=== PATIENT | male | born 1965 | race Caucasian/White ===

== ENCOUNTER 2016-08-18 10:12 | Emergency (ER) | payer MEDICARE, OTHER ==
[~2016-08-18] VITALS: Ht 185.4 cm; Wt 124.7 kg
[~2016-08-18 10:12] MED LIST: DIVA250T4 PO
[2016-08-18 10:18] VITALS: BP 179/109
== END 2016-08-18 11:04 | disposition home or self-care (01) ==
LOC: ER 10:14
DX: S30.812A Abrasion of penis, initial encounter (principal); G47.30 Sleep apnea, unspecified; F31.9 Bipolar disorder, unspecified; F32.9 Major depressive disorder, single episode, unspecified; F17.200 Nicotine dependence, unspecified, uncomplicated; X58.XXXA Exposure to other specified factors, initial encounter; Y93.9 Activity, unspecified; Y92.9 Unspecified place or not applicable; Y99.9 Unspecified external cause status
CPT/HCPCS: 99283; A4606; Z7610

== ENCOUNTER 2016-09-19 04:21 | Emergency (ER) | payer MEDICARE, OTHER ==
[~2016-09-19] VITALS: Ht 182.9 cm; Wt 131.5 kg
[2016-09-19 04:45] VITALS: BP 137/81
== END 2016-09-19 05:15 | disposition home or self-care (01) ==
LOC: ER 04:23
DX: L02.91 Cutaneous abscess, unspecified (principal); F32.9 Major depressive disorder, single episode, unspecified; G47.30 Sleep apnea, unspecified; I10 Essential (primary) hypertension; F17.210 Nicotine dependence, cigarettes, uncomplicated
CPT/HCPCS: 99283; A4606; Z7610

== ENCOUNTER 2016-09-22 03:40 | Emergency (ER) | payer MEDICARE, OTHER ==
[~2016-09-22] VITALS: Ht 185.4 cm; Wt 127.0 kg
--- NOTE | 2016-09-22 04:03 | NUR ---
PT AMBULATORY TO ER BED 8, PT STATES "HE WAS HERE ON FRIDAY FOR AN ABSCESS ON HIS LEFT LEG AND WAS TOLD TO COME BACK IN 3 DAYS FOR IT TO BE DRAINED." PT AOX 3 RR EVEN AND UNLABORED. NO SOB NOTED. NAD NOTED. NO NVD NOTED. PT NOT DIAPHORETIC. PT WAITING FOR MD ADAN.
--- NOTE | 2016-09-22 04:36 | NUR ---
AT BEDSIDE FOR I&D
--- NOTE | 2016-09-22 05:00 | NUR ---
Patient does not wish to proceed with medical care recommended by Dr. SPEARS . Patient given information related to possible complications, up to and including , which could occur as a result of leaving the hospital at this time. Patient verbalizes understanding of risks involved due to leaving against medical advice. Patient has signed AMA form. Patient discharged to home in stable condition. Written and verbal after care instructions given. Patient verbalizes understanding of instruction. ambulatory with a steady gait
[2016-09-22 05:01] VITALS: BP 130/79
== END 2016-09-22 05:02 | disposition left against medical advice (07) ==
LOC: ER 03:46
DX: L02.416 Cutaneous abscess of left lower limb (principal); L03.116 Cellulitis of left lower limb; F31.9 Bipolar disorder, unspecified; F32.9 Major depressive disorder, single episode, unspecified; F17.200 Nicotine dependence, unspecified, uncomplicated
CPT/HCPCS: A4606; A6402; A6407; Z7610

== ENCOUNTER 2016-09-25 03:54 | Emergency (ER) | payer MEDICARE, OTHER ==
--- NOTE | 2016-09-25 04:33 | NUR ---
CALLED PT X 3 IN WAITING ROOM. NO RESPONSE. PER ADMITTING STAFF PT LEFT.
== END 2016-09-25 04:35 | disposition left against medical advice (07) ==
LOC: ER 03:54
DX: Z53.21 Procedure and treatment not carried out due to patient leaving prior to being seen by health care provider (principal)

== ENCOUNTER 2016-09-25 05:19 | Emergency (ER) | payer MEDICARE, OTHER ==
--- NOTE | 2016-09-25 05:35 | NUR ---
CALLED FOR TRIAGE; NO ANSWER
--- NOTE | 2016-09-25 05:50 | NUR ---
CALLED AGAIN X2 FOR TRIAGE; INFORMED PT LEFT.
== END 2016-09-25 05:52 | disposition left against medical advice (07) ==
LOC: ER 05:19
DX: Z53.21 Procedure and treatment not carried out due to patient leaving prior to being seen by health care provider (principal)

== ENCOUNTER 2016-11-12 08:49 | Outpatient (CLI) | payer MEDICARE, OTHER | END 2016-11-12 23:59 | disposition home or self-care (01) | LOC: CT 08:49 | DX: Z87.891 Personal history of nicotine dependence (principal); Z80.1 Family history of malignant neoplasm of trachea, bronchus and lung | CPT/HCPCS: 71250-TC ==

== ENCOUNTER 2017-03-02 08:29 | Emergency (ER) | payer MEDICARE, OTHER ==
[~2017-03-02] VITALS: Ht 185.4 cm; Wt 127.0 kg
[2017-03-02] MEDS ORDERED: FLUCONAZOLE (100 MG) 100 MG TABLET ONE (08:57)
[2017-03-02] MEDS ORDERED: FLUCONAZOLE (100 MG) 100 MG TABLET PO ONE (09:00)
[2017-03-02 09:02] VITALS: BP 115/66
== END 2017-03-02 09:04 | disposition home or self-care (01) ==
LOC: ER 08:36
DX: B37.9 Candidiasis, unspecified (principal); F32.9 Major depressive disorder, single episode, unspecified; G47.30 Sleep apnea, unspecified; F17.200 Nicotine dependence, unspecified, uncomplicated; F31.9 Bipolar disorder, unspecified
CPT/HCPCS: 82962; 99283; A4606; Z7610

== ENCOUNTER 2017-06-30 10:19 | Emergency (ER) | payer MEDICARE, OTHER ==
[~2017-06-30] VITALS: Ht 185.4 cm; Wt 121.1 kg
[2017-06-30 10:50] VITALS: BP 145/82
== END 2017-06-30 10:51 | disposition home or self-care (01) ==
LOC: ER 10:20
DX: R42 Dizziness and giddiness (principal); G47.30 Sleep apnea, unspecified; F32.9 Major depressive disorder, single episode, unspecified; F17.200 Nicotine dependence, unspecified, uncomplicated
CPT/HCPCS: A4606; Z7610

== ENCOUNTER 2017-07-03 05:22 | Emergency (ER) | payer MEDICARE, OTHER ==
[~2017-07-03] VITALS: Ht 185.4 cm; Wt 121.1 kg
--- NOTE | 2017-07-03 05:56 | NUR ---
PT BIB SELF C/O DIZZINESS/ SINUS HEADACHE X1 WEEK. NO SOB NOTED AT THIS TIME. A/OX4 VSS NAD. WILL CONTINUE TO MONITOR FOR ANY CHANGES
--- NOTE | 2017-07-03 06:15 | NUR ---
ER AT BEDSIDE FOR EVAL
--- NOTE | 2017-07-03 06:18 | NUR ---
CALLED LAB FOR BLOOD DRAW
[2017-07-03 06:38] LABS: BASOPHILS % (AUTO) 0.7 % (0.0-2.0); EOSINOPHILS # (AUTO) 0.4 /CMM (0.0-0.7); EOSINOPHILS % (AUTO) 5.8 % (0.0-6.0); HEMATOCRIT 43 % (39-51); HEMOGLOBIN 14.4 g/dL (13.5-17.5); LYMPHOCYTES # (AUTO) 1.5 /CMM (0.8-4.8); LYMPHOCYTES % (AUTO) 22.8 % (20.0-44.0); MEAN CORPUSCULAR HEMOGLOBIN 30 PG (26.0-33.0); MEAN CORPUSCULAR HGB CONC 34 g/dl (31.0-36.0); MEAN CORPUSCULAR VOLUME 87 fL (80-96); MONOCYTES # (AUTO) 0.7 /CMM (0.1-1.30); MONOCYTES % (AUTO) 10.2 % (2.0-12.0); NEUTROPHILS # (AUTO) 3.9 /CMM (1.8-8.9); NEUTROPHILS % (AUTO) 60.5 % (43.0-81.0); PLATELET COUNT (AUTO) 205 /CMM (150-450); RDW COEFFICIENT OF VARIATION 14.4 (11.5-15.0); RED BLOOD CELL COUNT(AUTO) 4.88 MIL/uL (4.5-6.0); WHITE BLOOD COUNT (AUTO) 6.4 K/uL (4.3-11.0)
--- NOTE | 2017-07-03 06:45 | NUR ---
LAB AT BEDSIDE FOR BLOOW DRAW
[2017-07-03 06:52] LABS: CALCIUM, SERUM 8.7 mg/dL (8.5-10.1); CREATININE 0.9 mg/dL (0.6-1.3); POTASSIUM 4.1 mmol/L (3.5-5.1)
[2017-07-03 07:01] LABS: APPEARANCE,URINE SL CLOUDY (CLEAR); BILIRUBIN,URINE NEGATIVE (NEGATIVE); BLOOD, URINE NEGATIVE Ery/uL (NEGATIVE); COLOR,URINE YELLOW (YELLOW); KETONES,URINE NEGATIVE (NEGATIVE); LEUKOCYTE ESTERASE ,URINE NEGATIVE (NEGATIVE); NITRITE, URINE NEGATIVE (NEGATIVE); PH,URINE 5.5 (5.0-8.0); PROTEIN,URINE NEGATIVE (NEGATIVE); UGLUCOSE NEGATIVE (NEGATIVE); UROBILINOGEN,URINE 0.2 EU/dL (0.2)
--- NOTE | 2017-07-03 07:20 | NUR ---
REPORT GIVEN TO NESSA
--- NOTE | 2017-07-03 07:29 | NUR ---
D/C PAPERWORK AND LAB RESULTS GIVEN TO PT.
[2017-07-03 07:30] VITALS: BP 119/71
== END 2017-07-03 07:30 | disposition home or self-care (01) ==
LOC: ER 05:25
DX: R51 Headache (principal); F31.9 Bipolar disorder, unspecified; F17.200 Nicotine dependence, unspecified, uncomplicated
CPT/HCPCS: 36415; 80048; 81001; 85025; 99284; A4606; 81000-TC; Z7610

== ENCOUNTER 2018-10-09 21:49 | Inpatient (IN) | payer MEDICARE, OTHER ==
[~2018-10-09] VITALS: Ht 185.4 cm; Wt 132.0 kg
--- NOTE | 2018-10-09 21:53 | NUR ---
PT BIBSELF FOR "STOMACH CRAMPS" PT STATES HE THINKS IT COULD BE FOOD . PT AAOX4, PT ON MONITOR, VSS, NAD NOTED. PENDING MD ADAN
[2018-10-09] MEDS ORDERED: DICYCLOMINE HCL INJ 20 MG/2 ML AMPUL IM ONE ×2 (22:24→22:30)
[2018-10-09 22:31] LABS: APPEARANCE,URINE CLEAR (CLEAR); BILIRUBIN,URINE NEGATIVE (NEGATIVE); BLOOD, URINE NEGATIVE Ery/uL (NEGATIVE); COLOR,URINE YELLOW (YELLOW); KETONES,URINE TRACE (NEGATIVE); LEUKOCYTE ESTERASE ,URINE NEGATIVE (NEGATIVE); NITRITE, URINE NEGATIVE (NEGATIVE); PROTEIN,URINE NEGATIVE (NEGATIVE); UGLUCOSE NEGATIVE (NEGATIVE); UROBILINOGEN,URINE 0.2 EU/dL (0.2)
[2018-10-09 22:32] LABS: BASOPHILS # (AUTO) 0.1 /CMM (0.0-0.2); BASOPHILS % (AUTO) 0.3 % (0.0-2.0); EOSINOPHILS % (AUTO) 0.3 % (0.0-6.0); HEMATOCRIT 45 % (39-51); HEMOGLOBIN 15.2 g/dL (13.5-17.5); LYMPHOCYTES # (AUTO) 1.2 /CMM (0.8-4.8); LYMPHOCYTES % (AUTO) 7.1 % (20.0-44.0); MEAN CORPUSCULAR HGB CONC 34 g/dl (31.0-36.0); MEAN CORPUSCULAR VOLUME 87 fL (80-96); MONOCYTES # (AUTO) 1.1 /CMM (0.1-1.30); NEUTROPHILS # (AUTO) 13.9 /CMM (1.8-8.9); NEUTROPHILS % (AUTO) 85.3 % (43.0-81.0); PLATELET COUNT (AUTO) 224 /CMM (150-450); RED BLOOD CELL COUNT(AUTO) 5.15 MIL/uL (4.5-6.0); WHITE BLOOD COUNT (AUTO) 16.3 K/uL (4.3-11.0)
[2018-10-09 22:48] LABS: CALCIUM, SERUM 8.8 mg/dL (8.5-10.1); CARBON DIOXIDE 27 mmol/L (21-32); CHLORIDE 104 mmol/L (98-107); CREATININE 0.8 mg/dL (0.6-1.3); GLUCOSE 143 mg/dL (74-106); POTASSIUM 3.9 mmol/L (3.5-5.1); SODIUM SERUM 140 mmol/L (136-145); UREA NITROGEN, BLOOD 18 mg/dL (7-18)
[2018-10-09 22:53] LABS: ALANINE AMINOTRANSFERASE 29 U/L (12-78); ALBUMIN 3.8 g/dL (3.4-5.0); ALKALINE PHOSPHATASE 79 U/L (46-116); ASPARTATE AMINOTRANSFERASE 20 U/L (15-37); BILIRUBIN,DIRECT 0.1 mg/dL (0.0-0.2); BILIRUBIN,TOTAL 0.5 mg/dL (0.2-1.0); LIPASE 166 U/L (73-393); TOTAL PROTEIN, SERUM 7.4 g/dL (6.4-8.2)
--- NOTE | 2018-10-09 23:00 | NUR ---
RECEIVED REPORT FROM CHRISTAL BENSON FOR ERNESTO
--- NOTE | 2018-10-09 23:03 | NUR ---
PT RETURNED FROM CT
[2018-10-09] MEDS ORDERED: MORPHINE SULFATE INJ 2 MG/ML DISP.SYRIN ONE (23:46)
[2018-10-10] MEDS ORDERED: MORPHINE SULFATE INJ 2 MG/ML DISP.SYRIN IM ONE
[2018-10-10] MEDS ORDERED: PIPERACILLIN /TAZOBACTAM 3.375 G VIAL IV ONE ×2 (00:14→05:32)
--- NOTE | 2018-10-10 00:30 | NUR ---
GAVE REPORT TO NGA BENSON FOR ERNESTO
[2018-10-10 01:10] LABS: BACTERIA,URINE Few /HPF (None Seen); MUCUS,URINE Moderate /LPF (None Seen); RBC,URINE 0-2 /HPF (0-2); SQUAMOUS EPITHELIAL CELL,UR Rare /HPF (None Seen); WBC,URINE 0-2 /HPF (0-3)
--- NOTE | 2018-10-10 01:30 | NUR ---
MS/RN NOTES RECEIVED PT. FROM ER VIA WHEELCHAIR. PT. IS AWAKE, ALERT AND ORIENTED X3. BREATHING EVEN AND UNLABORED ON ROOM AIR. NO SOB, RESPIRATORY DISTRESS NOTED AT THIS TIME. PT. COMPLAINING OF ABDOMINAL PAIN 01/13 WILL ADMINISTER TO PT. PAIN MEDICATION ORDERED. ORIENTED PT. TO ROOM. PT. WITH RIGHT AC 18 GAUGE IV SALINE LOCK PRESENT, PATENT AND INTACT. BED LOCKED AND IN LOWEST POSITION, SIDE RAILS UP X2, CALL LIGHT WITHIN REACH, WILL CONTINUE TO MONITOR.
--- NOTE | 2018-10-10 01:44 | NUR ---
TRANSFERRED TO MS BED VIA WHEEL CHAIR
[2018-10-10] MEDS ORDERED: IV D5/0.45 NACL 1,000 ML IV PRN (02:00)
[2018-10-10] MEDS ORDERED: ACETAMINOPHEN 650 MG/SUPP.RECT RC PRN (02:00)
[2018-10-10 02:10] VITALS: BP 101/61
[2018-10-10] MEDS: MORPHINE SULFATE INJ 2 MG/ML DISP.SYRIN IV PRN ×3 (05:21→11:53)
[2018-10-10] MEDS ORDERED: PIPERACILLIN /TAZOBACTAM 3.375 G in IV D5W 50 ML IV SCH (06:00)
[2018-10-10] MEDS ORDERED: PIPERACILLIN /TAZOBACTAM 3.375 G in IV D5W 50 ML IV ONE ×3 (06:00)
[2018-10-10 06:35] LABS: BASOPHILS % (AUTO) 0.2 % (0.0-2.0); HEMATOCRIT 44 % (39-51); HEMOGLOBIN 14.7 g/dL (13.5-17.5); LYMPHOCYTES % (AUTO) 4.7 % (20.0-44.0); MEAN CORPUSCULAR HGB CONC 33 g/dl (31.0-36.0); MEAN CORPUSCULAR VOLUME 88 fL (80-96); MONOCYTES % (AUTO) 9.5 % (2.0-12.0); NEUTROPHILS # (AUTO) 17.5 /CMM (1.8-8.9); NEUTROPHILS % (AUTO) 85.6 % (43.0-81.0); PLATELET COUNT (AUTO) 198 /CMM (150-450); RED BLOOD CELL COUNT(AUTO) 5.03 MIL/uL (4.5-6.0); WHITE BLOOD COUNT (AUTO) 20.4 K/uL (4.3-11.0)
--- NOTE | 2018-10-10 06:41 | NUR ---
MS/RN NOTES PT. IS LYING IN BED RESTING. BREATHING EVEN AND UNLABORED ON ROOM AIR. NO SOB, RESPIRATORY DISTRESS OR COMPLAINTS OF PAIN NOTED AT THIS TIME. PT. WITH RIGHT AC 18 GAUGE PERIPHERAL IV PRESENT, PATENT AND INTACT ADMINISTERING TO PT. D51/2NS @ 100ML/HR. ALL PT. NEEDS MET. PT. REMAINS NPO SINCE ADMISSION TO THE FLOOR. BED LOCKED AND IN LOWEST POSITION, SIDE RAILS UP X2, CALL LIGHT WITHIN REACH, WILL ENDORSE TO DAYSHIFT NURSE FOR CONTINUITY OF CARE.
[2018-10-10 06:50] LABS: ALANINE AMINOTRANSFERASE 27 U/L (12-78); ALBUMIN 3.7 g/dL (3.4-5.0); ALKALINE PHOSPHATASE 74 U/L (46-116); ASPARTATE AMINOTRANSFERASE 18 U/L (15-37); BILIRUBIN,TOTAL 0.7 mg/dL (0.2-1.0); CALCIUM, SERUM 8.5 mg/dL (8.5-10.1); CARBON DIOXIDE 28 mmol/L (21-32); CHLORIDE 105 mmol/L (98-107); CHOLESTEROL 201 mg/dL (<200); CREATININE 0.9 mg/dL (0.6-1.3); GLUCOSE 137 mg/dL (74-106); HDL CHOLESTEROL 39 mg/dL (40-60); LDL 143 mg/dL (0-99); MAGNESIUM 2.1 mg/dL (1.8-2.4); PHOSPHORUS 2.5 mg/dL (2.5-4.9); SODIUM SERUM 140 mmol/L (136-145); TOTAL PROTEIN, SERUM 7.3 g/dL (6.4-8.2); TRIGLYCERIDES 95 mg/dL (30-150); UREA NITROGEN, BLOOD 16 mg/dL (7-18)
--- NOTE | 2018-10-10 06:53 | NUR ---
MS/RN NOTES NOTIFIED EPIC PHYSICAL THERAPY NURSE DR. JANG. PT. LACTIC ACID RESULTED AT 2.4, LACTIC ACID WAS NOT DRAWN UPON ADMISSION, PT. WBC 16.3 UPON ADMISSION. AM LABS ORDERED FOR TODAY RESULTS ARE PENDING. PT. IS RECEIVING IV FLUIDS D5 1/2 NS @ 100ML/HR AND ZOSYN ANTIBIOTICS. MD JANG AWARE, NO NEW ORDERS AT THIS TIME.
--- NOTE | 2018-10-10 07:37 | NUR ---
MS RN OPENING NOTES RECEIVED PT IN BED, AWAKE AND ALERT. STATING HE'S BEEN IN PAIN, HUNGRY AND THIRSTY. PT AWARE HE JUST HAD PAIN MEDICATION IV FROM NIGHT NURSE AND NOT DUE YET FOR ANOTHER ONE AT THIS TIME. PT AWARE OF PLAN FOR SURGERY WELL. CONCERN OF WHEN AND WHAT TIME SURGERY WILL HAPPEN. IVF D5 1/2 NS AT 100ML/HR NOTED, INFUSING WELL TO RAC G18. PT AMBULATORY ASKED TO BE UNHOOKED FROM IV FOR A WHILE AND WENT TO THE BATHROOM HIMSELF. PT'S BED KEPT IN LOWEST LOCKED POSITION. WILL CONTINUE PLAN OF CARE.
[2018-10-10] MEDS: PANTOPRAZOLE 40 MG VIAL IV SCH (07:52)
[2018-10-10 08:00] VITALS: BP 105/59
--- NOTE | 2018-10-10 08:40 | NUR ---
MS RN NOTES PT STATED IN PAIN AND REQUESTED FOR MORPHINE IN PRN. PAIN SCALE OF 9 OUT OF 10. PT ADDED, MORPHINE HELPS BUT HE'S BEEN IN PAIN SINCE YESTERDAY.
--- NOTE | 2018-10-10 09:22 | NUR ---
MS RN NOTES PT WAS SEEN AND EVALUATED BY DR HARRIS. SPOKE TO THE PT AND AGREED TO HAVE LAPAROSCOPIC APPENDECTOMY POSSIBLE OPEN AT 1PM. OBTAINED PROCEDURE, ANESTHESIA AND BT CONSENTS FROM THE PT. PT A/O X4, AWARE OF THE SITUATION AND PLAN.
--- NOTE | 2018-10-10 09:25 | NUR ---
MS RN NOTES SPOKE TO DR HARRIS AND AWARE OF CURRENT LAB RESULTS OF PT. LACTIC ACID, WBC AND INR RESULT.
--- NOTE | 2018-10-10 09:29 | NUR ---
MS RN NOTES PT REASSESSED AGAIN FOR PAIN. PT STATED HE'S STILL IN PAIN AND FEEL WARM. ADDED MORPHINE HELPED HIM A LITTLE BIT. PT ENCOURAGED DEEP BREATHING AND DIVERSIONS. WILL CONTINUE TO MONITOR.
[2018-10-10] MEDS ORDERED: IV NS 0.9% 1,000 ML BAG IV ONE (10:00)
--- NOTE | 2018-10-10 10:09 | NUR ---
MS RN NOTES RECEIVED CALL FROM LAB. INFORMED REGARDING LACTIC ACID RESULT OF 2.5. HOSPITALIST COMPUTER SUPPORT SPECIALIST INSTRUCTOR LW MADE AWARE. COMPUTER SUPPORT SPECIALIST INSTRUCTOR LW AWARE OF CURRENT IVF OF D5 1/2 NS AT 100ML/HR. ORDERED ONE TIME BOLUS OF 1L NS. PATIENT MADE AWARE.
--- NOTE | 2018-10-10 10:30 | NUR ---
MS RN NOTES RN VISITED PT. PT ASLEEP AND SNORING AT THIS TIME. WILL COME BACK AGAIN FOR COMPLETING OF INPATIENT SURGICAL & PROCEDURAL CHECKLIST WITH THE PT IN A BIT. WILL CONTINUE TO MONITOR.
--- NOTE | 2018-10-10 12:10 | NUR ---
MS RN NOTES RECHECKED VITALS. WITH ORAL TEMP OF 102.4, LITERATURE PROFESSOR LW AWARE. WITH NO NEW ORDERS FOR NOW. MORPHINE PRN IV GIVEN ORDERED AT 1153. PT PROVIDED 2 COOL/ICE BAGS AND PLACED TO BOTH ARMPITS AND COOL MOIST TOWEL TO FOREHEAD. IV NS BOLUS STILL INFUSING WELL, ALMOST DONE.
[2018-10-10] MEDS ORDERED: BUPIVACAINE MPF 0.5% W/EPI INJ 30 ML VIAL ONE (12:33)
[2018-10-10] MEDS ORDERED: PIPERACILLIN /TAZOBACTAM 3.375 G in IV D5W 100 ML IV SCH (13:00)
[2018-10-10] MEDS ORDERED: MIDAZOLAM HCL 2 MG/2ML VIAL ONE (13:03)
[2018-10-10] MEDS ORDERED: METOCLOPRAMIDE HCL 10 MG/2 ML VIAL ONE (13:04)
[2018-10-10] MEDS ORDERED: FENTANYL PF 250MCG/5ML AMPUL ONE (13:04)
[2018-10-10] MEDS ORDERED: FAMOTIDINE/PF INJ 20 MG/2 ML VIAL IV ONE (13:04)
[2018-10-10] MEDS ORDERED: ROCURONIUM BROMIDE 50 MG/5 ML ONE ×2 (13:05→14:51)
--- NOTE | 2018-10-10 13:08 | NUR ---
MS RN NOTES PT WAS BROUGHT TO RO BY 2RNS FROM OR VIA BED. PT URINATED AT THE BATHROOM BEFORE LEAVING THE UNIT AT 1302. IVF OF D5 1/2 NS AT 100ML/HR AND PB OF ZOSYN 25ML/HR, RUNNING AND ENDORSED TO RESIDENCE HALL DIRECTOR. LAST PAIN MEDICINE MORPHINE 2MG/IV AT 1153, ENDORSED WELL.
[2018-10-10] MEDS ORDERED: LIDOCAINE HCL/PF 1% 30 ML SDV ONE (13:52)
[2018-10-10] MEDS ORDERED: MUPIROCIN OINT 2% 22 GM TUBE ONE (15:59)
[2018-10-10] MEDS ORDERED: BACITRACIN/POLYMYXIN B 15 GM TUBE TP ONE (16:00)
[2018-10-10] MEDS ORDERED: FENTANYL PF 100MCG/2ML AMPUL ONE (16:12)
[2018-10-10 17:20] VITALS: BP 111/65
--- NOTE | 2018-10-10 17:20 | NUR ---
MS RN NOTES PT CAME BACK FROM RR AT [phone].
[2018-10-10] MEDS ORDERED: ONDANSETRON HCL/PF 4 MG/2 ML VIAL IV PRN (17:30)
--- NOTE | 2018-10-10 17:38 | NUR ---
MS RN NOTES RECEIVED PT FROM RR, BROUGHT BY 1RN VIA BED. PT INTERMITTENTLY DOZING OFF. ON SUPPLEMENTAL OXYGEN AT 2LPM, SATURATION OF 94%. VS TAKEN 111/65, 86, 98.2, 16; AFEBRILE. PT DENIES PAIN AT THIS MOMENT AND CONCERNED ABOUT FAMILY MEMBERS THAT VISITED HIM. BELONGING LIKE WALLET, CELLPHONE, KEYS, BILLING ASSOCIATE, SLIPPERS, SHIRT AND SHORTS GIVEN BACK TO PT; KEPT AT BEDSIDE. NGT AT LOW INTERMITTENT SUCTION TO LEFT NARES NOTED. PT CAME BACK TO THE UNIT WITH IVF NS AT 175ML/HR TO RIGHT HAND G18, INTACT AND INFUSING WELL. PT HAS SANTOS CATH, CLEAR YELLOWISH URINE DRAINING TO THE BAG, UO OF 120ML NOTED. PT PROVIDED ICE CHIPS AND WATER BEDSIDE. AWARE OF DIET/RESTRICTIONS AT THE MOMENT. KEPT PT COMFORTABLE. HOB ELEVATED. PT'S BED KEPT IN LOWEST, LOCKED POSITION. WILL CONTINUE TO MONITOR.
[2018-10-10] MEDS: PIPERACILLIN /TAZOBACTAM 4.5 G in IV D5W 50 ML IV SCH (18:31)
--- NOTE | 2018-10-10 19:10 | NUR ---
MS RN CLOSING NOTES PT IN BED, ASLEEP, EASILY AROUSED. ON SUPPLEMENTAL OXYGEN AT 2LPM, SATURATION OF 94%. AFEBRILE. IVF NS AT 175ML/HR TO RIGHT HAND G18, INTACT AND INFUSING WELL. PT HAS SANTOS CATH, CLEAR YELLOWISH URINE DRAINING TO THE BAG, TOTAL UO OF 150ML NOTED. PT PROVIDED ICE CHIPS AND WATER BEDSIDE. AWARE OF DIET/RESTRICTIONS AT THE MOMENT. KEPT PT COMFORTABLE. HOB ELEVATED. CALL LIGHT KEPT WITHIN REACH. PT ABLE TO MAKE NEEDS KNOWN. PT'S BED KEPT IN LOWEST, LOCKED POSITION. ENDORSED TO DESKTOP ARCHITECT NURSE FOR ERNESTO.
--- NOTE | 2018-10-10 19:30 | NUR ---
MS RN INITIAL NOTES Patient in bed, awake, on supplemental oxygen at 2L via NC, tolerating well. Abdomen incision dressing C/D/I, patient reports discomfort, denies pain. Left nare to low intermittent suction with minimal drainage from tubings. Patient is currently NPO, clarified order with Dr. Nguyen/GI may have ice chip and sips of water. Maintained safety, will cont to monitor.
[2018-10-10 20:00] VITALS: BP 100/67
[2018-10-10] MEDS: LEVOFLOXACIN 750 MG /D5W 150ML 750 MG in PREMIX 1 EA IV SCH (20:16)
[2018-10-10] MEDS: METRONIDAZOLE 500MG/ NS 100ML 500 MG in PREMIX 1 EA IV SCH (21:40)
--- NOTE | 2018-10-10 21:50 | NUR ---
RT TRIED TO INITIATE I.S. ON PATIENT BUT REFUSED AT THIS TIME; RN NOTIFIED AND AWARE. Addendum: 10/10/18 at 2151 by FELIPA MEYER RT Amended: Links added.
[2018-10-11] MEDS: IV NS 0.9% 1,000 ML IV PRN ×3 (00:31→16:45)
[2018-10-11] MEDS: PIPERACILLIN /TAZOBACTAM 4.5 G in IV D5W 50 ML IV SCH ×4 (01:38→18:48)
[2018-10-11] MEDS: HYDROMORPHONE 1 MG/1 ML DISP.SYRIN IV PRN ×8 (02:41→23:41)
[2018-10-11] MEDS: METRONIDAZOLE 500MG/ NS 100ML 500 MG in PREMIX 1 EA IV SCH ×3 (04:41→22:23)
--- NOTE | 2018-10-11 06:23 | NUR ---
MS RN CLOSING NOTES Patient in bed, on supplemental oxygen at 2L NC denies shortness of breath at rest and with exertion. NGT to low intermittent suction with moderate fluid output dark green. Abdomen incision dressing C/D/I. NPO status. IVF infusing maintained at 175 ml/hr, on scheduled IV antibiotic. Lactic acid level trends down, afebrile. Abdomen incisional pain controlled with PRN Dilaudid. Maintained safety, will endorse to oncoming RN.
[2018-10-11 06:24] LABS: BASOPHILS % (AUTO) 0.2 % (0.0-2.0); HEMATOCRIT 41 % (39-51); LYMPHOCYTES % (AUTO) 5.9 % (20.0-44.0); MEAN CORPUSCULAR HGB CONC 34 g/dl (31.0-36.0); MEAN CORPUSCULAR VOLUME 88 fL (80-96); MONOCYTES % (AUTO) 5.8 % (2.0-12.0); NEUTROPHILS # (AUTO) 14.9 /CMM (1.8-8.9); NEUTROPHILS % (AUTO) 88.1 % (43.0-81.0); PLATELET COUNT (AUTO) 192 /CMM (150-450); RED BLOOD CELL COUNT(AUTO) 4.69 MIL/uL (4.5-6.0); WHITE BLOOD COUNT (AUTO) 16.9 K/uL (4.3-11.0)
[2018-10-11 06:44] LABS: CALCIUM, SERUM 7.4 mg/dL (8.5-10.1); CREATININE 1.1 mg/dL (0.6-1.3); MAGNESIUM 2.1 mg/dL (1.8-2.4); PHOSPHORUS 2.9 mg/dL (2.5-4.9); POTASSIUM 4.3 mmol/L (3.5-5.1)
--- NOTE | 2018-10-11 07:15 | NUR ---
MS/RN OPENING NOTE THE PATIENT ALERT AND ORIENTED X4. RECEIVING OXYGEN AT 2L/MIN VIA NASAL CANNULA AND DENIES SOB. RESPIRATION REGULAR AND UNLABORED. DENIES PAIN. NG TUBE LOW INTERMITTENT SUCTION ON AND NOTED 600 ML GREENISH OUTPUT. SANTOS CATH IN PLACE. PATIENT NPO EXCEPT ICE CHIPS AND SIPS OF AFTER. LFA G 20 PATENT AND NORMAL SALINE INFUSING AT 175ML/HR AND NO S/S INFILTRATION NOTED. BED LOW AND LOCKED. SIDE RAILS UP X3. CALL LIGHT WITHIN REACH. WILL CONTINUE TO MONITOR.
[2018-10-11 08:00] VITALS: BP_SYST 112; BP_SYST 148; BP_DIAS 67; BP_DIAS 81
[2018-10-11] MEDS: NICOTINE PATCH (14MG) 14 MG PATCH.TD24 TD SCH (08:26)
[2018-10-11] MEDS: PANTOPRAZOLE 40 MG VIAL IV SCH (08:26)
--- NOTE | 2018-10-11 13:46 | NUR ---
MS/RN NOTE THE PATIENT IS SEEN BY DR HARRIS AND RECEIVED NEW ORDER OF MOTRIN 800 MG Q8HR, GABAPENTIN 300 MG Q8HR AND TYLENOL 650 MG Q8HR. READ BACK, VERIFIED. NOTED AND CARRIED OUT. ALSO DR HARRIS GAVE ORDERS TO REMOVE SANTOS CATH, TO REMOVE NG TUBE AND PATIENT TO AMBULATE WITH ASSIST. READ BACK, VERIFIED. NOTED AND CARRIED OUT.
--- NOTE | 2018-10-11 14:00 | NUR ---
MS/RN NOTE SANTOS CATH 700 ML CLEAR AND YELLOW COLOR URINE. SANTOS CATH REMOVED PER ORDER. NG SUCTION LIGHT GREEN OUTPUT OF 50 ML FROM 0700 TO 1400. NG TUBE IS REMOVED.
[2018-10-11] MEDS: ONDANSETRON HCL/PF 4 MG/2 ML VIAL IVP PRN ×2 (14:18→18:48)
--- NOTE | 2018-10-11 14:19 | NUR ---
MS/RN NOTE THE PATIENT COMPLAINED OT FEELING NAUSEOUS. NO VOMITING. ZOFRAN 4 MG IV PUSH GIVEN ORDERED. WILL CONTINUE TO MONITOR.
--- NOTE | 2018-10-11 14:48 | NUR ---
MS/RN NOTE THE PATIENT VERBALIZED RELIEF FROM NAUSEA.
[2018-10-11] MEDS: GABAPENTIN 300 MG CAPSULE PO SCH ×2 (14:52→21:31)
[2018-10-11] MEDS: IBUPROFEN 400 MG TABLET PO SCH ×2 (14:52→21:31)
[2018-10-11] MEDS: ACETAMINOPHEN 325 MG TABLET PO SCH ×2 (14:53→22:21)
--- NOTE | 2018-10-11 15:50 | NUR ---
MS/RN NOTED PER DR HARRIS NPO IS DISCONTINUED AND CLEAR LIQUID DIET WITH MAY ADVANCE TOLERATED IS RECEIVED. NOTED AND CARRIED OUT. Addendum: 10/11/18 at 1553 by JESI ALCAZAR RN CLARIFICATION: MAY ADVANCE TO FULL LIQUID TOLERATED.
[2018-10-11 16:00] VITALS: BP_SYST 112; BP_SYST 160; BP_DIAS 70; BP_DIAS 89
--- NOTE | 2018-10-11 18:09 | NUR ---
MS/RN NOTE THE PATIENT ALERT AND ORIENTED X4. IN ROOM AIR AND SATURATION IS AT 94%. DENIES SOB. RESPIRATION REGULAR AND UNLABORED. DENIES PAIN. THE PATIENT IN NO APPARENT DISTRESS AT THIS TIME. PATIENT IS ON CLEAR LIQUID. LFA G 20 PATENT AND NORMAL SALINE INFUSING AT 125ML/HR. NO S/S INFILTRATION NOTED. ABDOMINAL DRESSING INTACT WITH NO STRIKE THRUE. HYPOACTIVE BOWEL SOUND NOTED IN ALL FOUR QUADS. THE PATIENT WITH EPISODES OF BEING NON-COMPLIANT WITH SCD STOCKINGS DESPITE EXPLAINING RISKS AND BENEFITS. FUR JOINER SG AWARE. ENCOURAGED TO USE INCENTIVE SPIROMETER FREQUENTLY AND THE PATIENT COMPLIANT. ABLE TO VOID FREELY. NO BLADDER DISTENSION NOTED. GENTLE SKIN CARE RENDERED. ALL NEEDS ATTENDED AND ANTICIPATED. BED LOW AND LOCKED. SIDE RAILS UP X3. CALL LIGHT WITHIN REACH. WILL ENDORSE TO MAINTENANCE MECHANIC ENGINE.
--- NOTE | 2018-10-11 18:50 | NUR ---
MS/RN NOTE URINE OUTPUT AFTER REMOVAL OF SANTOS CATH TILL THE END OF THE SHIFT WAS 600 ML YELLOW COLOR URINE WITH NO FOUL ODOR.
--- NOTE | 2018-10-11 19:10 | NUR ---
RN OPEN NOTES RECEIVED PATIENT IN AWAKE IN BED. A/O X4. NO SIGNS OF DISTRESS. BREATHING EVEN AND UNLABORED. IV ACCESS IN LFA WITH ZOSYN INFUSING, PATENT AND INTACT, NO SIGNS OF REDNESS OR INFILTRATION. STATES PAIN TOLERABLE AT THIS TIME. BED IN LOW LOCKED POSITION WITH SIDE RAILS X2. CALL LIGHT WITHIN REACH. WILL CONTINUE TO MONITOR.
[2018-10-11] MEDS: LEVOFLOXACIN 750 MG /D5W 150ML 750 MG in PREMIX 1 EA IV SCH (20:36)
[2018-10-11 21:00] VITALS: BP 113/73
[2018-10-12] MEDS: PIPERACILLIN /TAZOBACTAM 4.5 G in IV D5W 50 ML IV SCH ×4 (01:34→18:00)
[2018-10-12] MEDS: HYDROMORPHONE 1 MG/1 ML DISP.SYRIN IV PRN (01:53)
[2018-10-12] MEDS: METRONIDAZOLE 500MG/ NS 100ML 500 MG in PREMIX 1 EA IV SCH ×3 (05:02→21:46)
[2018-10-12] MEDS: IBUPROFEN 400 MG TABLET PO SCH ×3 (05:02→21:45)
[2018-10-12] MEDS: ACETAMINOPHEN 325 MG TABLET PO SCH ×3 (06:51→21:45)
[2018-10-12 07:15] LABS: BASOPHILS % (AUTO) 0.1 % (0.0-2.0); EOSINOPHILS % (AUTO) 0.4 % (0.0-6.0); HEMATOCRIT 40 % (39-51); HEMOGLOBIN 13.7 g/dL (13.5-17.5); LYMPHOCYTES # (AUTO) 0.8 /CMM (0.8-4.8); LYMPHOCYTES % (AUTO) 4.5 % (20.0-44.0); MEAN CORPUSCULAR HGB CONC 34 g/dl (31.0-36.0); MEAN CORPUSCULAR VOLUME 88 fL (80-96); MONOCYTES # (AUTO) 1.3 /CMM (0.1-1.30); MONOCYTES % (AUTO) 7.2 % (2.0-12.0); NEUTROPHILS # (AUTO) 15.9 /CMM (1.8-8.9); NEUTROPHILS % (AUTO) 87.8 % (43.0-81.0); PLATELET COUNT (AUTO) 213 /CMM (150-450); RED BLOOD CELL COUNT(AUTO) 4.59 MIL/uL (4.5-6.0); WHITE BLOOD COUNT (AUTO) 18.1 K/uL (4.3-11.0)
--- NOTE | 2018-10-12 07:30 | NUR ---
RN CLOSING NOTES PATIENT IN AWAKE STANDING IN ROOM. A/O X4. NO SIGNS OF DISTRESS. BREATHING EVEN AND UNLABORED. IV ACCESS IN RFA, PATENT AND INTACT, NO SIGNS OF REDNESS OR INFILTRATION. DENIES ANY PAIN AT THIS TIME. ALL NEEDS MET. NO SIGNIFICANT CHANGES THROUGH THE NIGHT. BED IN LOW LOCKED POSITION WITH SIDE RAILS X2. CALL LIGHT WITHIN REACH. ENDORSED TO AM SHIFT FOR ERNESTO.
--- NOTE | 2018-10-12 07:32 | NUR ---
RN OPENING NOTE PT WAS RECEIVED A/OX4 WALKING AROUND IN HIS ROOM IN STABLE CONDITION, BREATHING EVEN AND UNLABORED ON RA, NO S/S OF ANY PAIN OR DISTRESS, IV IS PATENT AND INTACT, BED IN LOCKED AND LOWEST POSITION WITH SIDE RAILS UP X2, SAFETY PRECAUTIONS IN PLACE, CALL LIGHT WITHIN REACH, WILL MONITOR ACCORDINGLY
[2018-10-12 07:48] LABS: CALCIUM, SERUM 8.3 mg/dL (8.5-10.1); CREATININE 0.8 mg/dL (0.6-1.3); MAGNESIUM 2.6 mg/dL (1.8-2.4); PHOSPHORUS 1.8 mg/dL (2.5-4.9); POTASSIUM 3.9 mmol/L (3.5-5.1)
[2018-10-12 08:00] VITALS: BP 117/68
[2018-10-12] MEDS: GABAPENTIN 300 MG CAPSULE PO SCH ×3 (08:01→21:45)
[2018-10-12] MEDS: PANTOPRAZOLE 40 MG VIAL IV SCH (08:01)
[2018-10-12] MEDS: NICOTINE PATCH (14MG) 14 MG PATCH.TD24 TD SCH (08:01)
[2018-10-12] MEDS ORDERED: K PHOS NEUTRAL 250 MG TABLET PO ONE (12:00)
[2018-10-12 16:00] VITALS: BP 111/79
--- NOTE | 2018-10-12 19:02 | NUR ---
RN CLOSING NOTE PT WALKING IN ROOM, A/OX4, BREATHING EVEN AND UNLABORED ON RA, NO S/S OF ANY PAIN OR DISTRESS, IV IS PATENT AND INTACT, BED IN LOCKED AND LOWEST POSITION WITH SIDE RAILS UP X2, SAFETY PRECAUTIONS IN PLACE, CALL LIGHT WITHIN REACH, WILL ENDORSE TO VP OF TECHNOLOGY RN FOR ERNESTO.
--- NOTE | 2018-10-12 19:10 | NUR ---
RN OPEN NOTES RECEIVED PATIENT IN AWAKE IN BED. A/O X4. NO SIGNS OF DISTRESS. BREATHING EVEN AND UNLABORED. IV ACCESS IN RFA WITH ZOSYN INFUSING, PATENT AND INTACT, NO SIGNS OF REDNESS OR INFILTRATION. DENIES PAIN AT THIS TIME. ABD DRESSING C/D/I. BED IN LOW LOCKED POSITION WITH SIDE RAILS X2. CALL LIGHT WITHIN REACH. WILL CONTINUE TO MONITOR.
[2018-10-12 20:00] VITALS: BP 111/69
[2018-10-12] MEDS: LEVOFLOXACIN 750 MG /D5W 150ML 750 MG in PREMIX 1 EA IV SCH (20:16)
[2018-10-12] MEDS ORDERED: ZOLPIDEM TARTRATE 5 MG TABLET PO PRN (22:00)
[2018-10-13] MEDS: PIPERACILLIN /TAZOBACTAM 4.5 G in IV D5W 50 ML IV SCH ×2 (01:19→06:21)
[2018-10-13] MEDS: ACETAMINOPHEN 325 MG TABLET PO SCH (05:14)
[2018-10-13] MEDS: IBUPROFEN 400 MG TABLET PO SCH (05:14)
[2018-10-13] MEDS: METRONIDAZOLE 500MG/ NS 100ML 500 MG in PREMIX 1 EA IV SCH (05:14)
[2018-10-13] MEDS: IV NS 0.9% 1,000 ML IV PRN (05:14)
--- NOTE | 2018-10-13 06:55 | NUR ---
RN CLOSING NOTES PATIENT IN RESTING IN BED, EASILY AROUSABLE. A/O X4. NO SIGNS OF DISTRESS. BREATHING EVEN AND UNLABORED. IV ACCESS IN RFA WITH ZOSYN INFUSING, PATENT AND INTACT, NO SIGNS OF REDNESS OR INFILTRATION. DENIES ANY PAIN AT THIS TIME. ALL NEEDS MET. NO SIGNIFICANT CHANGES THROUGH THE NIGHT. BED IN LOW LOCKED POSITION WITH SIDE RAILS X2. CALL LIGHT WITHIN REACH. WILL ENDORSE TO AM SHIFT FOR ERNESTO.
[2018-10-13 07:29] LABS: BASOPHILS % (AUTO) 0.3 % (0.0-2.0); EOSINOPHILS % (AUTO) 4.3 % (0.0-6.0); HEMATOCRIT 39 % (39-51); LYMPHOCYTES # (AUTO) 0.5 /CMM (0.8-4.8); LYMPHOCYTES % (AUTO) 5.3 % (20.0-44.0); MEAN CORPUSCULAR HGB CONC 34 g/dl (31.0-36.0); MEAN CORPUSCULAR VOLUME 88 fL (80-96); MONOCYTES # (AUTO) 0.9 /CMM (0.1-1.30); MONOCYTES % (AUTO) 10.2 % (2.0-12.0); NEUTROPHILS # (AUTO) 7.2 /CMM (1.8-8.9); NEUTROPHILS % (AUTO) 79.9 % (43.0-81.0); PLATELET COUNT (AUTO) 210 /CMM (150-450); WHITE BLOOD COUNT (AUTO) 8.9 K/uL (4.3-11.0)
--- NOTE | 2018-10-13 07:30 | NUR ---
RN MS NOTES PT AWAKE, WALKING AROUND THE HALLWAY, NO COMPLAINT OF PAIN, NOT IN DISTRESS, EAGER TO GO OUT AND GET SOME AIR AND SMOKE, PLAN OF CARE DISCUSSED WITH PT, VERBALIZED UNDERSTANDING, TOLERATING CURRENT DIET WELL.
[2018-10-13 07:55] LABS: CALCIUM, SERUM 7.7 mg/dL (8.5-10.1); CREATININE 0.8 mg/dL (0.6-1.3); MAGNESIUM 2.2 mg/dL (1.8-2.4); PHOSPHORUS 1.7 mg/dL (2.5-4.9); POTASSIUM 3.4 mmol/L (3.5-5.1)
[2018-10-13 08:00] VITALS: BP 115/84
[2018-10-13] MEDS: PANTOPRAZOLE 40 MG VIAL IV SCH (08:24)
[2018-10-13] MEDS: GABAPENTIN 300 MG CAPSULE PO SCH (08:24)
[2018-10-13] MEDS: NICOTINE PATCH (14MG) 14 MG PATCH.TD24 TD SCH (08:44)
[2018-10-13 08:58] LABS: BAND % (MANUAL) 8 % (0.0-5.0); EOSINOPHILS % (MANUAL) 2 % (0-4); LYMPHOCYTES % (MANUAL) 5 % (16-48); MONOCYTES % (MANUAL) 9 % (0-11.0); NEUTROPHILS % (MANUAL) 76 (42-76)
[2018-10-13] MEDS ORDERED: POTASSIUM CHLORIDE 20 MEQ TAB.PRT.SR PO ONE (09:30)
[2018-10-13] MEDS ORDERED: NEUTRA PHOS 1 POWD.PACKET PO ONE (10:00)
--- NOTE | 2018-10-13 10:15 | NUR ---
RN MS NOTES PT AWAKE, ALERT AND ORIENTED, WALKING ALONG THE HALLWAY, VERY EAGER TO GO HOME, NO COMPLAINT OF PAIN, RESPIRATIONS NORMAL, TOLERATING CURRENT DIET WELL, COMPLIANT WITH MEDICATION, NO BLEEDING NOTED TO ABDOMINAL INCISION SITE, DRESSING DRY AND CLEAN, PT SEEN BY DR. HARRIS, CLEARED FOR DISCHARGE, DISCHARGE AND MEDICATION INSTRUCTIONS PROVIDED TO PT, VERBALIZED UNDERSTANDING, PT INFORMED TO FOLLOW UP WITH HIS PRIMARY CARE PHYSICIAN AND TO FOLLOW UP WITH DR. HARRIS FOR STAPLE REMOVAL 11 DAYS AFTER SURGERY, REMINDED PT TO GO THE NEAREST E.R. IN CASE OF EMERGENCY, VERBALIZED UNDERSTANDING, DR. HARRIS'S OFFICE INFORMATION GIVEN TO PT, PRESCRIPTION PROVIDED BY DR. HARRIS, BELONGINGS ACCOUNTED FOR, CALLED GREGG GRIFFITH ORE BRIDGE OPERATOR FOR MEDICAL DISCHARGE, PER GREGG, HE WILL SEE PT, PT STATED THAT HE CAN NOT WAIT ANYMORE FOR THE HOSPITALIST AND WANTS TO LEAVE RIGHT NOW, EXPLAINED RISKS AND BENEFITS ABOUT LEAVING WITHOUT BEING CLEARED BY THE HOSPITALIST, STILL WOULD LIKE TO LEAVE, PT SIGNED AMA FORM, ASSISTED PT TO HOSPITAL LOBBY, LEFT VIA PRIVATE CAR IN STABLE CONDITION.
--- NOTE | 2018-10-13 10:30 | NUR ---
RN MS NOTES GREGG GRIFFITH TOBACCO CURER INFORMED OF PT'S LEAVING AMA.
== END 2018-10-13 10:10 | disposition home or self-care (01) | DRG 339 ==
LOC: ER 21:51 → MED 10-10 01:01
PROVIDERS: ADMIT Registered Nurse; ATTEND Registered Nurse
PROC: 0DTJ0ZZ Resection of Appendix, Open Approach (ICD-10-PCS; principal; 2018-10-10)
PROC: 0DJD4ZZ Inspection of Lower Intestinal Tract, Percutaneous Endoscopic Approach (ICD-10-PCS; 2018-10-10)
PROC: 3E1M38Z Irrigation of Peritoneal Cavity using Irrigating Substance, Percutaneous Approach (ICD-10-PCS; 2018-10-10)
DX: K35.21 Acute appendicitis with generalized peritonitis, with abscess (principal); E87.2 Acidosis; E78.5 Hyperlipidemia, unspecified; E66.01 Morbid (severe) obesity due to excess calories; Z68.38 Body mass index [BMI] 38.0-38.9, adult; F17.210 Nicotine dependence, cigarettes, uncomplicated; K76.0 Fatty (change of) liver, not elsewhere classified; G47.33 Obstructive sleep apnea (adult) (pediatric); D72.829 Elevated white blood cell count, unspecified; F31.9 Bipolar disorder, unspecified; R79.89 Other specified abnormal findings of blood chemistry
CPT/HCPCS: 36415; 71045-TC; 80048-TC; 80053-TC; 80061-TC; 80076-TC; 81000-TC; 83605-TC; 83690-TC; 83735-TC; 83880; 84100-TC; 84484-TC; 85025-TC; 85610-TC; 86850-TC; 87070-TC; 87075-TC; 87081-TC; 87186-TC; 88304-TC; 94799-TC; A4216; A4217; C9113; G0378; J0500; J1170; J1885; J1956; J2250; J2270; J2405; J2543; J2704; J2710; J2765; J3010; J3490; J7030; J7060

== ENCOUNTER 2019-06-23 13:16 | Emergency (ER) | payer MEDICARE, OTHER ==
[~2019-06-23] VITALS: Ht 188 cm; Wt 117.0 kg
--- NOTE | 2019-06-23 14:00 | NUR ---
left foot pain x 1 month, denies injury/trauma 11/13 ps. on room air, ambulatory. kept comfortable, will continue to monitor accordingly.
--- NOTE | 2019-06-23 14:34 | NUR ---
Patient discharged to home in stable condition. Written and verbal after care instructions given. Patient verbalizes understanding of instruction.
[2019-06-23 14:52] VITALS: BP 124/67
== END 2019-06-23 14:52 | disposition home or self-care (01) ==
LOC: ER 13:16
DX: M79.672 Pain in left foot (principal); F32.9 Major depressive disorder, single episode, unspecified; F17.200 Nicotine dependence, unspecified, uncomplicated; Z79.899 Other long term (current) drug therapy
CPT/HCPCS: 73630-TC

== ENCOUNTER 2019-07-05 14:25 | Emergency (ER) | payer MEDICARE, OTHER ==
[~2019-07-05] VITALS: Ht 180.3 cm; Wt 95.3 kg
[2019-07-05 14:51] VITALS: BP 139/84
== END 2019-07-05 15:19 | disposition home or self-care (01) ==
LOC: ER 14:29
DX: L03.115 Cellulitis of right lower limb (principal); F17.200 Nicotine dependence, unspecified, uncomplicated; Z79.899 Other long term (current) drug therapy

== ENCOUNTER 2019-08-22 12:24 | Emergency (ER) | payer MEDICARE, OTHER ==
[~2019-08-22] VITALS: Ht 188 cm; Wt 111.1 kg
[2019-08-22 12:43] VITALS: BP 134/79
== END 2019-08-22 13:20 | disposition home or self-care (01) ==
LOC: ER 12:31
DX: B86 Scabies (principal); F17.200 Nicotine dependence, unspecified, uncomplicated; Z59.0 Homelessness; Z79.899 Other long term (current) drug therapy

== ENCOUNTER 2020-04-17 10:06 | Emergency (ER) | payer MEDICARE, OTHER ==
[~2020-04-17] VITALS: Ht 185.4 cm; Wt 124.7 kg
--- NOTE | 2020-04-17 10:06 | NUR ---
PT BIB SELF C/O THROAT ABSCESS FOR 3 DAYS. PT IS AAOX4, NOT IN RESPIRATORY DISTRESS, V/S STABLE, KEPT RESTED AND COMFORTABLE. WILL CONTINUE TO MONITOR.
--- NOTE | 2020-04-17 10:10 | NUR ---
AT BEDSIDE FOR EVAL.
[2020-04-17] MEDS ORDERED: EPINEPHRINE (1:1000) 1 MG/ML AMPUL ONE (10:11)
[2020-04-17] MEDS ORDERED: DEXAMETHASONE SOD PHOSPHATE 10 MG/ML VIAL ONE (10:23)
--- NOTE | 2020-04-17 10:27 | NUR ---
IV LINE ESTABLISHED [id number] R AC.
[2020-04-17] MEDS ORDERED: CLINDAMYCIN 900 MG in IV D5W 100 ML IV ONE (10:30)
[2020-04-17] MEDS ORDERED: DEXAMETHASONE SOD PHOSPHATE 10 MG/ML VIAL IV ONE (10:30)
[2020-04-17] MEDS ORDERED: LIDOCAINE 1%-EPI 1:100,000 20 ML VIAL ONE (10:59)
[2020-04-17] MEDS ORDERED: CLINDAMYCIN 900 MG in IV D5W 50 ML IV ONE (11:00)
[2020-04-17] MEDS ORDERED: TETRACAINE/BENZOCAINE/BUTAMBEN 56 GM SPRAY TP ONE (11:00)
[2020-04-17] MEDS ORDERED: LIDOCAINE 1%-EPI 1:100,000 50 ML VIAL IJ ONE (11:00)
--- NOTE | 2020-04-17 11:44 | NUR ---
SIGNED CONSENT FOR PROCEDURE
--- NOTE | 2020-04-17 12:28 | NUR ---
DR GRIER AT BEDSIDE FOR ASPIRATION OF STEPAN-TONSILLAR AREA.
[2020-04-17 13:08] VITALS: BP 134/81
--- NOTE | 2020-04-17 13:10 | NUR ---
Patient does not wish to proceed with medical care recommended by Dr. Quiñonez. Patient given information related to possible complications, up to and including , which could occur as a result of leaving the hospital at this time. Patient verbalizes understanding of risks involved due to leaving against medical advice. Patient has signed AMA form.
== END 2020-04-17 13:10 | disposition home or self-care (01) ==
LOC: ER 10:10
DX: J36 Peritonsillar abscess (principal); Z79.899 Other long term (current) drug therapy
CPT/HCPCS: 42700; 96365; 96375; 99284; J1100; J3490 ×3; J7060; J0171

== ENCOUNTER → 2021-04-07 | Emergency (ER) | payer MEDICARE, OTHER ==
[~2021-04-07] VITALS: Ht 188 cm; Wt 127.0 kg
[~2021-04-07] MED LIST changes: +CEFTRIAXONE 1 G VIAL IM ONE; +CEFTRIAXONE 1 G VIAL ONE; +CEPH500C2 PO; +CLOT15CR27 TP; +LIDOCAINE 0.5% HCL 50 ML VIAL ONE; +LIDOCAINE 1% INJ 50 ML MDV IJ ONE; +SULF1TAB48 PO; +SULFAMETH/TRIMETH 800/160 MG 1 UDTAB TABLET ONE; +SULFAMETH/TRIMETH 800/160 MG 1 UDTAB TABLET PO ONE
--- NOTE | 2021-04-07 02:56 | NUR ---
PT DISCHARGED RX GIVEN LEFT AMBULATING IN STABLE CONDITION.
[2021-04-07 03:00] VITALS: BP 133/78
== END | disposition home or self-care (01) ==
LOC: ER 01:43
DX: L02.412 Cutaneous abscess of left axilla (principal); F32.9 Major depressive disorder, single episode, unspecified; F17.200 Nicotine dependence, unspecified, uncomplicated; Z79.899 Other long term (current) drug therapy
CPT/HCPCS: 10060; 96372; 99283; A6407; J0696; J3490 ×2

== ENCOUNTER 2021-11-30 14:09 | Emergency (ER) | payer MEDICARE, OTHER ==
[~2021-11-30] VITALS: Ht 188 cm; Wt 122.5 kg
[~2021-11-30 14:09] MED LIST changes: -CEFTRIAXONE 1 G VIAL IM ONE; -CEFTRIAXONE 1 G VIAL ONE; -LIDOCAINE 0.5% HCL 50 ML VIAL ONE; -LIDOCAINE 1% INJ 50 ML MDV IJ ONE; -SULFAMETH/TRIMETH 800/160 MG 1 UDTAB TABLET ONE; -SULFAMETH/TRIMETH 800/160 MG 1 UDTAB TABLET PO ONE
--- NOTE | 2021-11-30 14:09 | NUR ---
BIBS C/O R ARM SWELLING X 2 DAYS, PAIN ON 7/10 ON PAIN SCALE. AWAITING MD ORDERS
[2021-11-30] MEDS ORDERED: VANCOMYCIN 1.5 GM in IV D5W 500 ML IV ONE (15:00)
[2021-11-30] MEDS ORDERED: PIPERACILLIN /TAZOBACTAM 3.375 G in IV D5W 50 ML IV ONE (15:00)
[2021-11-30 15:11] LABS: BASOPHILS % (AUTO) 0.2 % (0.0-2.0); EOSINOPHILS % (AUTO) 0.3 % (0.0-6.0); HEMATOCRIT 47 % (39-51); HEMOGLOBIN 15.6 g/dL (13.5-17.5); LYMPHOCYTES # (AUTO) 1.5 K/uL (0.8-4.8); LYMPHOCYTES % (AUTO) 6.6 % (20.0-44.0); MEAN CORPUSCULAR HGB CONC 33 g/dl (31.0-36.0); MEAN CORPUSCULAR VOLUME 88 fL (80-96); MONOCYTES # (AUTO) 2.4 K/uL (0.1-1.30); MONOCYTES % (AUTO) 10.6 % (2.0-12.0); NEUTROPHILS # (AUTO) 18.5 K/uL (1.8-8.9); NEUTROPHILS % (AUTO) 82.3 % (43.0-81.0); PLATELET COUNT (AUTO) 240 K/uL (150-450); RED BLOOD CELL COUNT(AUTO) 5.36 MIL/uL (4.5-6.0); WHITE BLOOD COUNT (AUTO) 22.4 K/uL (4.3-11.0)
[2021-11-30 15:12] VITALS: BP 122/73
--- NOTE | 2021-11-30 15:21 | NUR ---
PT REFUSED IV AND WISHED THAT HE DID NOT WANT TO STAY OVERNIGHT AT THE HOSPITAL. PT WAS EXPLAINED TO RISKS OF LEAVING AND DID NOT WAIT FOR DR RAMIREZ TO EXPLAIN THE RISKS WELL. PT LEFT THE FACILITY WALKING.
[2021-11-30 15:43] LABS: CALCIUM, SERUM 8.5 mg/dL (8.5-10.1); CREATININE 1.1 mg/dL (0.6-1.3)
== END 2021-11-30 15:33 | disposition left against medical advice (07) ==
LOC: ER 14:39
DX: L02.413 Cutaneous abscess of right upper limb (principal); F32.A Depression, unspecified; F17.200 Nicotine dependence, unspecified, uncomplicated; Z79.899 Other long term (current) drug therapy
CPT/HCPCS: 36415; 80048; 83605; 85025; 87040 ×2; 99283; J2543; J3370; J7060 ×2